=== PATIENT | female | born 1990 | race Caucasian/White ===

== ENCOUNTER 2017-01-18 18:57 | Emergency (ER) | payer OTHER ==
[~2017-01-18] VITALS: Ht 167.6 cm; Wt 86.2 kg
[~2017-01-18 18:57] MED LIST: BIRTH CONTROL PO; METFORMIN ER500 MG PO; ORTHO-NOVUM 7-1 EACH PO; SPIRONOLACTONE50 M1 PO; VISTARIL50 M1 PO
--- NOTE | 2017-01-18 21:39 | ED GI/GU/ABDOMINAL COMPLAINT ---
History of Present Illness General Chief Complaint: Nausea, Vomiting, Diarrhea Stated Complaint: NVD X 1WEEK Source: patient, old records Exam Limitations: no limitations Vital Signs & Intake/Output Vital Signs & Intake/Output Vital Signs Date Time Temp Pulse Resp B/P Pulse O2 O2 Flow FiO2 Ox Delivery Rate 01/18 2347 97.2 77 18 127/58 100 Room Air 01/18 2228 Room Air Room Air 01/18 1929 97.4 80 18 120/74 99 Room Air ED Intake and Output 01/19 0000 01/18 1200 Intake Total 1000 Output Total Balance 1000 Intake, IV 1000 Patient 190 lb Weight Allergies Coded Allergies: Penicillins (RASH 05/07/16) amoxicillin (RASH 05/07/16) erythromycin base (RASH, VOMITING 05/07/16) Reconcile Medications Norethindrone-Ethinyl Estrad ([facility] 7-7-7-28 Tablet) 1 EACH TABLET 1 TAB PO DAILY CONTROL (Reported) Spironolactone 50 MG TABLET 1 TAB PO DAILY HORMONE BALANCE/ ACNE (Reported) Triage Note: RECEIVED 26 YO FEMALE C/O C/O NAUSEA WITH VOMITING X ONE WEEK, NO C/O ABDOMINAL PAIN. PT UNABLE TO TOLERATE ANY FOOD. PT ABLE TO TOLERATE FLUIDS. PT TOOK URINE PREGNANY TEST YESTERDAY, WAS NEGATIVE. PT LATE FOR HER PERIOD. Triage Nurses Notes Reviewed? yes ? N Is pt currently ? No HPI: Patient has been having nausea for past week. Patient states she wakes up with nausea and she remains nauseous throughout the day. There is no change with. Patient has vomited 3 times. There is no diarrhea. There is no abdominal pain. Patient states she feels that she is and her last menstrual period was over a month ago and she is a week late for her period. Patient states that she took 7 home tests have all been negative. Patient presents for evaluation. Past History Travel History Traveled to [place] past 21 day No Medical History Any Pertinent Medical History? none Neurological: NONE EENT: NONE Cardiovascular: NONE Respiratory: NONE Gastrointestinal: NONE Hepatic: NONE Renal: NONE Musculoskeletal: NONE Psychiatric: NONE Endocrine: NONE Blood Disorders: NONE Cancer(s): NONE METER TECHNICIAN/Reproductive: NONE Surgical History Surgical History: non-contributory Psychosocial History What is your primary language Welsh Tobacco Use: Never used ETOH Use: occasional use Illicit Drug Use: denies illicit drug use Family History Hx Contributory? No Review of Systems Review of Systems Constitutional: Reports: no symptoms. EENTM: Reports: no symptoms. Respiratory: Reports: no symptoms. Cardiovascular: Reports: no symptoms. GI: Reports: see HPI, nausea, vomiting. Genitourinary: Reports: no symptoms. Musculoskeletal: Reports: no symptoms. Skin: Reports: no symptoms. Neurological/Psychological: Reports: no symptoms. Hematologic/Endocrine: Reports: no symptoms. Immunologic/Allergic: Reports: no symptoms. All Other Systems: Reviewed and Negative Physical Exam Physical Exam General Appearance: well developed/nourished, no apparent distress, alert, awake Head: atraumatic Eyes: Bilateral: PERRL, EOMI. Ears, Nose, Throat, Mouth: hearing grossly normal, moist mucous membrane Neck: normal inspection, supple, full range of motion Respiratory: normal breath sounds, chest non-tender, no respiratory distress, lungs clear Cardiovascular: regular rate/rhythm, normal peripheral pulses Gastrointestinal: normal bowel sounds, soft, non-tender, no organomegaly Back: normal inspection, normal range of motion Extremities: normal range of motion Neurologic/Psych: no motor/sensory deficits, awake, alert, oriented x 3, normal gait, normal mood/affect Skin: intact, normal color, warm/dry Core Measures ACS in differential dx? No Severe Sepsis Present: No Septic Shock Present: No Progress Differential Diagnosis: appendicitis, ectopic , gastritis, hepatitis, ischemic bowel, inflamm bowel dis, intrauterine , pancreatitis, threatened AB, UTI/pyelo Plan of Care: Orders Procedure Date/time Status LIPASE 01/18 2139 Complete HUMAN BETA HCG SCREEN 01/18 2139 Complete COMPREHENSIVE METABOLIC PANEL 01/18 2139 Complete CBC WITHOUT DIFFERENTIAL 01/18 2139 Complete AMYLASE 01/18 2139 Complete URINALYSIS 01/18 1930 Complete Laboratory Tests 01/18/17 2302: Anion Gap 9, Estimated GFR > 60, BUN/Creatinine Ratio 32.9 H, Glucose 78, Calcium 9.0, Total Bilirubin 0.6, AST 16, ALT 23, Alkaline Phosphatase 42, Total Protein 6.8, Albumin 3.8, Globulin 3.0, Albumin/Globulin Ratio 1.3, Amylase < 30 L, Lipase 65, Total Beta HCG NEGATIVE 01/18/170: CBC w Diff NO MAN DIFF REQ, RBC 4.63, MCV 88.2, MCH 30.4, RDW 13.3, MPV 8.8, Gran % 65.9, Lymphocytes % 27.0, Monocytes % 5.7, Eosinophils % 0.8, Basophils % 0.6, Absolute Granulocytes 5.0, Absolute Lymphocytes 2.0, Absolute Monocytes 0.4 , Absolute Eosinophils 0.1, Absolute Basophils 0, PUBS MCHC 34.5 01/18/17 2137: Urine Color YEL, Urine Clarity CLEAR, Urine pH 6.0, Ur Specific [place] 1.020, Urine Protein NEG, Urine Ketones NEG, Urine Nitrite NEG, Urine Bilirubin NEG, Urine Urobilinogen 0.2, Ur Leukocyte Esterase NEG, Ur Microscopic EXAM NOT REQUIRED, Urine Hemoglobin NEG, Urine Glucose NEG Initial ED EKG: none Departure Departure Disposition: HOME OR SELF CARE Condition: Stable Clinical Impression Primary Impression: Nausea Referrals: PATIENT HAS NO PRIMARY CARE DR (PCP/Family) HARRIET GRIFFITHS MD Additional Instructions: Follow-up with Dr. Griffiths. Return if symptoms worsen or for any concerns. Departure Forms: Customer Survey General Discharge Information Prescriptions: Current Visit Scripts Ondansetron (Zofran Odt) 1 TAB SL TID PRN NAUSEA #10 TAB
[2017-01-18 22:34] LABS: ABSOLUTE BASOPHIL COUNT 0 /CUMM (0.0-0.2); ABSOLUTE EOSINOPHIL COUNT 0.1 /CUMM (0.0-0.7); ABSOLUTE MONOCYTE COUNT 0.4 /CUMM (0.10-0.60); BASOPHIL % 0.6 % (0.0-2.0); EOSINOPHIL % 0.8 % (0-5); GRANULOCYTE % 65.9 % (42.2-75.2); HEMATOCRIT 40.8 % (37-47); MEAN CORPUSCULAR HGB 30.4 PG (27.0-31.0); MEAN CORPUSCULAR HGB CONC 34.5 G/DL (33.0-37.0); MEAN CORPUSCULAR VOLUME 88.2 FL (81.0-99.0); MEAN PLATELET VOLUME 8.8 FL (7.4-10.4); PLATELET COUNT 196 /CUMM (130-400); RBC DISTRIBUTION WIDTH 13.3 % (11.5-14.5); RED BLOOD CELL CT 4.63 /CUMM (4.20-5.40); WHITE BLOOD CELL COUNT 7.5 /CUMM (4.8-10.8)
[2017-01-18 23:47] VITALS: BP 127/58
[2017-01-19] MEDS ORDERED: ZOFRAN ODT4 M1 SL
== END 2017-01-19 00:24 ==
LOC: ERH 18:57
PROVIDERS: Emergency Medicine
DX: R11.0 Nausea (principal)
CPT/HCPCS: 81003; 81025; 96361; 96374; J2405